=== PATIENT | female | born 1955 | race African-American/Black ===

== ENCOUNTER → 2017-08-17 | Outpatient (CLI) | payer OTHER ==
[2016-01-25 02:38] VITALS: BP 134/70
--- NOTE | 2017-08-17 13:25 | RAD ---
Complete abdominal ultrasound 08/17/2017 Indication: Elevated LFTs Comparison study: None Discussion: Ultrasound evaluation of the abdomen was performed. Static images are submitted to PACS. Partially visualized pancreas is grossly unremarkable. The visualized aorta and IVC are grossly unremarkable. The liver is normal in size measuring 16 cm longitudinally. The liver is diffusely hyperechoic suggesting some degree of hepatic steatosis. No intrahepatic biliary dilatation is seen. Portal vein appears to be grossly patent. Gallbladder is partially decompressed but appears otherwise unremarkable without evidence of wall thickening, stones, or sludge. The common bile duct is nondilated at 4 mm. The right kidney is normal in appearance measuring 11 cm in length. The spleen is partially visualized but appears be normal in size measuring approximately 9 cm in length. Left kidney is normal in appearance measuring 10.1 cm in length. Impression: Hepatic steatosis. Otherwise unremarkable abdominal ultrasound.
== END | disposition home or self-care (01) ==
LOC: US 09:44
PROVIDERS: ATTEND Internal Medicine Gastroenterology
DX: K76.0 Fatty (change of) liver, not elsewhere classified (principal)
CPT/HCPCS: 76700